=== PATIENT | male | born 1955 | race Caucasian/White ===

== ENCOUNTER 2017-11-28 13:57 | Inpatient (IN) | payer OTHER ==
[2017-11-28 18:29] LABS: ADD MAN DIFF? NO
[2017-11-28 18:31] LABS: BASOPHIL # 0.1 10^3/ul (0.0-0.1); BASOPHILS % 0.5 % (0.0-2.0); EOSINOPHILS # 0.3 10^3/ul (0.0-0.5); EOSINOPHILS % 2.2 % (0.0-7.0); HEMATOCRIT 28.3 % (42.0-52.0); HEMOGLOBIN 8.5 g/dl (14.0-18.0); LYMPHOCYTES # 2.7 10^3/ul (0.8-2.9); LYMPHOCYTES % 20.6 % (15.0-51.0); MEAN CORPUSCULAR HEMOGLOBIN 28.4 pg (29.0-33.0); MEAN CORPUSCULAR VOLUME 94.6 fl (82.0-101.0); MEAN PLATELET VOLUME 10.3 fl (7.4-10.4); MONOCYTE # 1.2 10^3/ul (0.3-0.9); MONOCYTES % 9.3 % (0.0-11.0); NEUTROPHIL # 8.6 10^3/ul (1.6-7.5); NEUTROPHILS % 66.8 % (39.0-77.0); PLATELET COUNT 293 10^3/UL (140-415); RED BLOOD COUNT 2.99 10^6/ul (4.70-6.10); RED CELL DISTRIBUTION WIDTH 11.6 % (11.5-14.5)
[2017-11-28 18:34] LABS: INR 0.91; PROTIME 12.3 Sec (11.9-14.9)
[2017-11-28] MEDS: CIPROFLOXACIN 400MG/D5W 200 ML IVPB (18:40)
[2017-11-28 18:51] LABS: ALANINE AMINOTRANSFERASE 31 IU/L (13-69); ALBUMIN 3.9 g/dl (3.3-4.9); ALBUMIN/GLOBULIN RATIO 1.34; ALKALINE PHOSPHATASE 98 IU/L (42-121); ANION GAP 16 (8-16); ASPARTATE AMINO TRANSFERASE 24 IU/L (15-46); BILIRUBIN,INDIRECT 0.1 mg/dl (0-1.1); BILIRUBIN,TOTAL 0.1 mg/dl (0.2-1.3); BLOOD UREA NITROGEN 60 mg/dl (7-20); CALCIUM 8.7 mg/dl (8.4-10.2); CARBON DIOXIDE 23 mmol/L (21-31); CHLORIDE 110 mmol/L (97-110); GLUCOSE 163 mg/dl (70-220); POTASSIUM 4.9 mmol/L (3.5-5.1); SODIUM 144 mmol/L (135-144); TOTAL PROTEIN 6.8 g/dl (6.1-8.1)
[2017-11-28 19:04] LABS: TROPONIN-I < 0.012 ng/ml (0.000-0.120)
[2017-11-28] MEDS: VANCOMYCIN 1 GM (PMX) 250 ML IVPB (19:31)
[2017-11-28] MEDS ORDERED: ONDANSETRON 4 MG INJ IV (20:00)
[2017-11-28] MEDS ORDERED: ACETAMINOPHEN 325 MG TAB PO (20:00)
[2017-11-28] MEDS: hydrALAzine 20 MG INJ IV (20:55)
[2017-11-28] MEDS ORDERED: NACL 0.9% 3 ML SYG IV (21:00)
[2017-11-28] MEDS ORDERED: ALBUTEROL/IPRATROPIUM (NEB) 3 ML AMP HHN (21:00)
[2017-11-28] MEDS ORDERED: morphine 2 MG INJ IV (21:00)
[2017-11-29] MEDS ORDERED: PENDING SANTYL ORDER FOR WOUND CARE XX
[2017-11-29] MEDS: ATORVASTATIN 20 MG TAB PO ×2 (00:10→20:43)
[2017-11-29] MEDS: HEPARIN 5,000 UNIT/0.5 ML VIAL SC ×3 (00:11→20:44)
[2017-11-29] MEDS: VANCOMYCIN 500MG/NS (PMX) 100 ML IVPB (00:27)
[2017-11-29 06:33] LABS: ADD MAN DIFF? NO
[2017-11-29 06:41] LABS: BASOPHILS % 0.3 % (0.0-2.0); EOSINOPHILS # 0.1 10^3/ul (0.0-0.5); EOSINOPHILS % 1.2 % (0.0-7.0); HEMATOCRIT 26.2 % (42.0-52.0); LYMPHOCYTES # 2.2 10^3/ul (0.8-2.9); MEAN CORPUSCULAR HEMOGLOBIN 28.5 pg (29.0-33.0); MEAN CORPUSCULAR HGB CONC 30.5 g/dl (32.0-37.0); MEAN CORPUSCULAR VOLUME 93.2 fl (82.0-101.0); MEAN PLATELET VOLUME 10.4 fl (7.4-10.4); MONOCYTE # 0.8 10^3/ul (0.3-0.9); MONOCYTES % 6.9 % (0.0-11.0); NEUTROPHIL # 8.8 10^3/ul (1.6-7.5); NEUTROPHILS % 73.2 % (39.0-77.0); PLATELET COUNT 276 10^3/UL (140-415); RED BLOOD COUNT 2.81 10^6/ul (4.70-6.10); RED CELL DISTRIBUTION WIDTH 11.7 % (11.5-14.5)
[2017-11-29 07:05] LABS: ALANINE AMINOTRANSFERASE 26 IU/L (13-69); ALBUMIN 3.4 g/dl (3.3-4.9); ALBUMIN/GLOBULIN RATIO 1.36; ALKALINE PHOSPHATASE 87 IU/L (42-121); ANION GAP 16 (8-16); ASPARTATE AMINO TRANSFERASE 24 IU/L (15-46); BILIRUBIN,INDIRECT 0.2 mg/dl (0-1.1); BILIRUBIN,TOTAL 0.2 mg/dl (0.2-1.3); BLOOD UREA NITROGEN 55 mg/dl (7-20); CALCIUM 8.7 mg/dl (8.4-10.2); CARBON DIOXIDE 21 mmol/L (21-31); CHLORIDE 113 mmol/L (97-110); CHOLESTEROL 152 mg/dl (100-200); CREATININE 3.47 mg/dl (0.61-1.24); GLUCOSE 95 mg/dl (70-220); HDL CHOLESTEROL 30 mg/dl (30-78); LDL CHOLESTEROL,CALCULATED 90 mg/dl; PHOSPHORUS 3.9 mg/dl (2.5-4.9); SODIUM 145 mmol/L (135-144); TOTAL PROTEIN 5.9 g/dl (6.1-8.1); TRIGLYCERIDES 158 mg/dl (0-149)
[2017-11-29 07:13] LABS: IRON 35 ug/dl (35-150)
[2017-11-29 07:24] LABS: HEMOGLOBIN A1C 5.3 % (0-5.9)
[2017-11-29 07:26] LABS: % IRON SATURATION 12 % SAT (22-52); TOTAL IRON BINDING CAPACITY 293 ug/dl (241-421)
[2017-11-29] MEDS: BENAZEPRIL 10 MG TAB PO (08:35)
[2017-11-29] MEDS: CLOPIDOGREL 75 MG TAB PO (08:35)
[2017-11-29] MEDS: AMLODIPINE 2.5 MG TAB PO (08:36)
[2017-11-29] MEDS ORDERED: VANCOMYCIN IV PER PHARMACY XX (09:00)
[2017-11-29] MEDS: SOD CHLORIDE 0.45% 1,000 ML IV (12:35)
[2017-11-29] MEDS: hydrALAzine 20 MG INJ IV (15:57)
[2017-11-29] MEDS: ACETAMINOPHEN 325 MG TAB PO (18:06)
[2017-11-29] MEDS: INSULIN ASPART [NOVOLOG] 3 ML PEN SC ×2 (18:16→20:43)
[2017-11-29] MEDS: SODIUM HYPOCHLORITE (1/40) 1 APPLIC BTL IRR (20:44)
[2017-11-29] MEDS ORDERED: morphine LIQ (10 MG/5 ML) CUP PO (21:30)
[2017-11-30] MEDS: SOD CHLORIDE 0.45% 1,000 ML IV ×4 (01:50→15:26)
[2017-11-30 06:13] LABS: ADD MAN DIFF? NO
[2017-11-30 06:26] LABS: BASOPHILS % 0.3 % (0.0-2.0); EOSINOPHILS # 0.2 10^3/ul (0.0-0.5); EOSINOPHILS % 2.2 % (0.0-7.0); HEMATOCRIT 27.2 % (42.0-52.0); HEMOGLOBIN 8.3 g/dl (14.0-18.0); LYMPHOCYTES # 2.1 10^3/ul (0.8-2.9); LYMPHOCYTES % 20.6 % (15.0-51.0); MEAN CORPUSCULAR HEMOGLOBIN 28.5 pg (29.0-33.0); MEAN CORPUSCULAR HGB CONC 30.5 g/dl (32.0-37.0); MEAN CORPUSCULAR VOLUME 93.5 fl (82.0-101.0); MEAN PLATELET VOLUME 10.4 fl (7.4-10.4); MONOCYTE # 0.9 10^3/ul (0.3-0.9); MONOCYTES % 8.7 % (0.0-11.0); NEUTROPHILS % 67.8 % (39.0-77.0); PLATELET COUNT 293 10^3/UL (140-415); RED BLOOD COUNT 2.91 10^6/ul (4.70-6.10); RED CELL DISTRIBUTION WIDTH 11.7 % (11.5-14.5)
[2017-11-30 06:26] LABS: WHITE BLOOD COUNT 10.3 10^3/ul (4.8-10.8)
[2017-11-30 06:44] LABS: ANION GAP 13 (8-16); BLOOD UREA NITROGEN 51 mg/dl (7-20); CALCIUM 8.7 mg/dl (8.4-10.2); CARBON DIOXIDE 21 mmol/L (21-31); CHLORIDE 116 mmol/L (97-110); CREATININE 3.46 mg/dl (0.61-1.24); GLUCOSE 97 mg/dl (70-220); POTASSIUM 4.8 mmol/L (3.5-5.1); SODIUM 145 mmol/L (135-144)
[2017-11-30] MEDS: INSULIN ASPART [NOVOLOG] 3 ML PEN SC ×4 (07:53→20:51)
[2017-11-30] MEDS: HEPARIN 5,000 UNIT/0.5 ML VIAL SC (09:13)
[2017-11-30] MEDS: SODIUM HYPOCHLORITE (1/40) 1 APPLIC BTL IRR ×2 (09:14→21:00)
[2017-11-30] MEDS: CLOPIDOGREL 75 MG TAB PO (09:14)
[2017-11-30] MEDS: AMLODIPINE 10 MG TAB PO (09:14)
[2017-11-30] MEDS: ACETAMINOPHEN 325 MG TAB PO ×2 (10:25→20:42)
[2017-11-30] MEDS: ACETYLCYSTEINE 600 MG CAP PO ×2 (14:01→20:43)
[2017-11-30 16:31] LABS: ADD UMIC YES; UR ASCORBIC ACID NEGATIVE (NEGATIVE); UR BILIRUBIN (Dip) NEGATIVE (NEGATIVE); UR BLOOD (Dip) 1+ mg/dL (NEGATIVE); UR CLARITY CLEAR (CLEAR); UR COLOR STRAW (YELLOW); UR GLUCOSE (Dip) 1+ mg/dL (NEGATIVE); UR KETONES (Dip) NEGATIVE (NEGATIVE); UR LEUKOCYTE ESTERASE (Dip) NEGATIVE Leu/ul (NEGATIVE); UR NITRITE (Dip) NEGATIVE (NEGATIVE); UR RBC 1 /HPF (0-5); UR SPECIFIC GRAVITY (Dip) 1.012 (1.003-1.030); UR TOTAL PROTEIN (Dip) 2+ mg/dl (NEGATIVE); UR UROBILINOGEN (Dip) NEGATIVE (NEGATIVE); UR WBC 1 /HPF (0-5)
[2017-11-30 16:50] LABS: CREATININE,URINE RANDOM 85.04 mg/dl (20-370)
[2017-11-30 16:50] LABS: SODIUM,URINE RANDOM 83 mmol/L (30-90)
[2017-11-30] MEDS: ZYVOX 600 MG TAB PO (20:42)
[2017-11-30] MEDS: ATORVASTATIN 20 MG TAB PO (20:44)
[2017-12-01] MEDS: INSULIN ASPART [NOVOLOG] 3 ML PEN SC ×4 (01:00→22:24)
[2017-12-01] MEDS: SOD CHLORIDE 0.45% 1,000 ML IV ×4 (02:46→23:47)
[2017-12-01] MEDS: hydrALAzine 20 MG INJ IV ×3 (04:52→18:15)
[2017-12-01] MEDS: SODIUM HYPOCHLORITE (1/40) 1 APPLIC BTL IRR ×3 (05:01→21:00)
[2017-12-01 06:33] LABS: ADD MAN DIFF? NO
[2017-12-01 06:45] LABS: BASOPHILS % 0.3 % (0.0-2.0); EOSINOPHILS # 0.3 10^3/ul (0.0-0.5); EOSINOPHILS % 2.9 % (0.0-7.0); HEMATOCRIT 27.2 % (42.0-52.0); HEMOGLOBIN 8.4 g/dl (14.0-18.0); LYMPHOCYTES # 2.1 10^3/ul (0.8-2.9); LYMPHOCYTES % 21.2 % (15.0-51.0); MEAN CORPUSCULAR HEMOGLOBIN 28.8 pg (29.0-33.0); MEAN CORPUSCULAR HGB CONC 30.9 g/dl (32.0-37.0); MEAN CORPUSCULAR VOLUME 93.2 fl (82.0-101.0); MEAN PLATELET VOLUME 10.4 fl (7.4-10.4); MONOCYTE # 0.9 10^3/ul (0.3-0.9); MONOCYTES % 8.5 % (0.0-11.0); NEUTROPHIL # 6.7 10^3/ul (1.6-7.5); NEUTROPHILS % 66.6 % (39.0-77.0); PLATELET COUNT 270 10^3/UL (140-415); RED BLOOD COUNT 2.92 10^6/ul (4.70-6.10); RED CELL DISTRIBUTION WIDTH 11.6 % (11.5-14.5)
[2017-12-01 06:57] LABS: PHOSPHORUS 4.6 mg/dl (2.5-4.9)
[2017-12-01 06:57] LABS: MAGNESIUM 1.9 mg/dl (1.7-2.5)
[2017-12-01 07:03] LABS: ANION GAP 17 (8-16); BLOOD UREA NITROGEN 52 mg/dl (7-20); CALCIUM 8.6 mg/dl (8.4-10.2); CARBON DIOXIDE 19 mmol/L (21-31); CHLORIDE 112 mmol/L (97-110); CREATININE 3.45 mg/dl (0.61-1.24); GLUCOSE 108 mg/dl (70-220); POTASSIUM 4.7 mmol/L (3.5-5.1); SODIUM 143 mmol/L (135-144)
[2017-12-01] MEDS: ACETAMINOPHEN 325 MG TAB PO ×2 (07:52→17:32)
[2017-12-01] MEDS: ACETYLCYSTEINE 600 MG CAP PO ×2 (12:57→22:23)
[2017-12-01] MEDS: CLOPIDOGREL 75 MG TAB PO (12:57)
[2017-12-01] MEDS: AMLODIPINE 10 MG TAB PO (12:57)
[2017-12-01] MEDS: ZYVOX 600 MG TAB PO ×2 (12:58→22:23)
[2017-12-01] MEDS: NIFEdipine (XL) 60 MG TAB PO (15:47)
[2017-12-01 16:31] LABS: CREATININE, RANDOM URINE 104 mg/dL (20-370); MICROALBUMIN 83.2 mg/dL; MICROALBUMIN/CREATININE RATIO 800 (<30)
[2017-12-01 17:50] LABS: OCCULT BLOOD STOOL NEGATIVE (NEGATIVE)
[2017-12-01] MEDS: ATORVASTATIN 20 MG TAB PO (22:23)
[2017-12-02] MEDS: ACCU-CHEK XX (02:00)
[2017-12-02] MEDS: SOD CHLORIDE 0.45% 1,000 ML IV ×2 (04:30→10:27)
[2017-12-02 04:56] LABS: ADD MAN DIFF? NO
[2017-12-02 05:00] LABS: BASOPHILS % 0.3 % (0.0-2.0); EOSINOPHILS # 0.2 10^3/ul (0.0-0.5); EOSINOPHILS % 1.8 % (0.0-7.0); HEMATOCRIT 24.9 % (42.0-52.0); HEMOGLOBIN 7.6 g/dl (14.0-18.0); LYMPHOCYTES # 2.1 10^3/ul (0.8-2.9); MEAN CORPUSCULAR HEMOGLOBIN 28.5 pg (29.0-33.0); MEAN CORPUSCULAR HGB CONC 30.5 g/dl (32.0-37.0); MEAN CORPUSCULAR VOLUME 93.3 fl (82.0-101.0); MEAN PLATELET VOLUME 10.2 fl (7.4-10.4); NEUTROPHIL # 7.7 10^3/ul (1.6-7.5); NEUTROPHILS % 69.5 % (39.0-77.0); PLATELET COUNT 248 10^3/UL (140-415); RED BLOOD COUNT 2.67 10^6/ul (4.70-6.10); RED CELL DISTRIBUTION WIDTH 11.9 % (11.5-14.5)
[2017-12-02 05:17] LABS: ANION GAP 17 (8-16); BLOOD UREA NITROGEN 53 mg/dl (7-20); CALCIUM 8.6 mg/dl (8.4-10.2); CARBON DIOXIDE 19 mmol/L (21-31); CHLORIDE 112 mmol/L (97-110); GLUCOSE 127 mg/dl (70-220); PHOSPHORUS 4.8 mg/dl (2.5-4.9); POTASSIUM 4.9 mmol/L (3.5-5.1); SODIUM 143 mmol/L (135-144)
[2017-12-02] MEDS: SODIUM HYPOCHLORITE (1/40) 1 APPLIC BTL IRR ×4 (05:32→20:33)
[2017-12-02] MEDS: INSULIN ASPART [NOVOLOG] 3 ML PEN SC ×4 (08:00→20:30)
[2017-12-02] MEDS: CITRIC ACID/SODIUM CITRATE 15 ML CUP PO ×2 (08:41→20:31)
[2017-12-02] MEDS: ACETYLCYSTEINE 600 MG CAP PO ×2 (08:42→20:29)
[2017-12-02] MEDS: CLOPIDOGREL 75 MG TAB PO (08:42)
[2017-12-02] MEDS: ZYVOX 600 MG TAB PO ×2 (08:42→20:31)
[2017-12-02] MEDS: ACETAMINOPHEN 325 MG TAB PO (08:43)
[2017-12-02] MEDS: NIFEdipine (XL) 60 MG TAB PO (08:43)
[2017-12-02] MEDS: CALCIUM ACETATE 667 MG CAP NGT (11:30)
[2017-12-02] MEDS: CILOSTAZOL 100 MG TAB PO ×2 (12:25→20:29)
[2017-12-02] MEDS: EPOETIN ALFA (NESRD) 3,000 UNITS/ML VIAL SC (12:27)
[2017-12-02] MEDS: PENTOXIFYLLINE (SR) 400 MG TAB PO ×2 (12:38→20:31)
[2017-12-02] MEDS: FERROUS GLUCONATE (EC) 325 MG TAB PO ×2 (12:40→20:31)
[2017-12-02] MEDS: CALCIUM ACETATE 667 MG CAP PO ×2 (12:40→17:01)
[2017-12-02] MEDS: ATORVASTATIN 20 MG TAB PO (20:32)
[2017-12-03] MEDS: ACCU-CHEK XX ×2 (01:20→23:04)
[2017-12-03] MEDS: SOD CHLORIDE 0.45% 1,000 ML IV (04:30)
[2017-12-03 04:57] LABS: ADD MAN DIFF? NO
[2017-12-03 05:01] LABS: BASOPHILS % 0.3 % (0.0-2.0); EOSINOPHILS # 0.2 10^3/ul (0.0-0.5); EOSINOPHILS % 1.9 % (0.0-7.0); HEMATOCRIT 24.5 % (42.0-52.0); HEMOGLOBIN 7.5 g/dl (14.0-18.0); LYMPHOCYTES # 2.2 10^3/ul (0.8-2.9); MEAN CORPUSCULAR HEMOGLOBIN 28.2 pg (29.0-33.0); MEAN CORPUSCULAR HGB CONC 30.6 g/dl (32.0-37.0); MEAN CORPUSCULAR VOLUME 92.1 fl (82.0-101.0); MEAN PLATELET VOLUME 10.3 fl (7.4-10.4); MONOCYTE # 0.9 10^3/ul (0.3-0.9); MONOCYTES % 8.3 % (0.0-11.0); NEUTROPHIL # 7.2 10^3/ul (1.6-7.5); NEUTROPHILS % 68.2 % (39.0-77.0); PLATELET COUNT 259 10^3/UL (140-415); RED BLOOD COUNT 2.66 10^6/ul (4.70-6.10); RED CELL DISTRIBUTION WIDTH 11.9 % (11.5-14.5)
[2017-12-03 05:01] LABS: WHITE BLOOD COUNT 10.6 10^3/ul (4.8-10.8)
[2017-12-03 05:39] LABS: ANION GAP 14 (8-16); BLOOD UREA NITROGEN 45 mg/dl (7-20); CALCIUM 8.8 mg/dl (8.4-10.2); CARBON DIOXIDE 20 mmol/L (21-31); CHLORIDE 115 mmol/L (97-110); CREATININE 3.69 mg/dl (0.61-1.24); GLUCOSE 127 mg/dl (70-220); PHOSPHORUS 4.4 mg/dl (2.5-4.9); POTASSIUM 4.9 mmol/L (3.5-5.1); SODIUM 144 mmol/L (135-144)
[2017-12-03] MEDS: INSULIN ASPART [NOVOLOG] 3 ML PEN SC ×4 (08:00→20:35)
[2017-12-03] MEDS: CALCIUM ACETATE 667 MG CAP PO ×3 (08:19→17:42)
[2017-12-03] MEDS: CLOPIDOGREL 75 MG TAB PO (08:20)
[2017-12-03] MEDS: ACETYLCYSTEINE 600 MG CAP PO ×2 (08:20→21:00)
[2017-12-03] MEDS: SODIUM HYPOCHLORITE (1/40) 1 APPLIC BTL IRR ×2 (08:20→20:48)
[2017-12-03] MEDS: FERROUS GLUCONATE (EC) 325 MG TAB PO ×2 (08:20→20:33)
[2017-12-03] MEDS: PENTOXIFYLLINE (SR) 400 MG TAB PO ×3 (08:20→20:33)
[2017-12-03] MEDS: NIFEdipine (XL) 60 MG TAB PO (08:20)
[2017-12-03] MEDS: ZYVOX 600 MG TAB PO ×2 (08:20→20:34)
[2017-12-03] MEDS: CITRIC ACID/SODIUM CITRATE 15 ML CUP PO ×2 (08:20→20:49)
[2017-12-03] MEDS: CILOSTAZOL 100 MG TAB PO ×2 (08:21→21:00)
[2017-12-03] MEDS: ONDANSETRON 4 MG INJ IV (12:22)
[2017-12-03] MEDS: TERBINAFINE 250 MG TAB PO ×2 (12:22→20:34)
[2017-12-03] MEDS: hydrALAzine 20 MG INJ IV (20:35)
[2017-12-03] MEDS: ATORVASTATIN 20 MG TAB PO (21:00)
[2017-12-03] MEDS: METOPROLOL 25 MG TAB PO (22:35)
[2017-12-04] MEDS: hydrALAzine 20 MG INJ IV ×2 (02:56→12:36)
[2017-12-04] MEDS: SOD CHLORIDE 0.45% 1,000 ML IV (04:04)
[2017-12-04 06:57] LABS: ADD MAN DIFF? NO
[2017-12-04 07:06] LABS: WHITE BLOOD COUNT 11.4 10^3/ul (4.8-10.8)
[2017-12-04 07:06] LABS: BASOPHILS % 0.2 % (0.0-2.0); EOSINOPHILS # 0.1 10^3/ul (0.0-0.5); EOSINOPHILS % 1.1 % (0.0-7.0); HEMATOCRIT 24.6 % (42.0-52.0); HEMOGLOBIN 7.5 g/dl (14.0-18.0); LYMPHOCYTES % 17.1 % (15.0-51.0); MEAN CORPUSCULAR HEMOGLOBIN 28.6 pg (29.0-33.0); MEAN CORPUSCULAR HGB CONC 30.5 g/dl (32.0-37.0); MEAN CORPUSCULAR VOLUME 93.9 fl (82.0-101.0); MEAN PLATELET VOLUME 10.5 fl (7.4-10.4); MONOCYTES % 8.7 % (0.0-11.0); NEUTROPHIL # 8.3 10^3/ul (1.6-7.5); NEUTROPHILS % 72.2 % (39.0-77.0); PLATELET COUNT 257 10^3/UL (140-415); RED BLOOD COUNT 2.62 10^6/ul (4.70-6.10); RED CELL DISTRIBUTION WIDTH 11.9 % (11.5-14.5)
[2017-12-04 07:24] LABS: ANION GAP 15 (8-16); BLOOD UREA NITROGEN 49 mg/dl (7-20); CALCIUM 8.8 mg/dl (8.4-10.2); CARBON DIOXIDE 21 mmol/L (21-31); CHLORIDE 112 mmol/L (97-110); CREATININE 3.58 mg/dl (0.61-1.24); GLUCOSE 127 mg/dl (70-220); PHOSPHORUS 4.2 mg/dl (2.5-4.9); SODIUM 143 mmol/L (135-144)
[2017-12-04] MEDS: INSULIN ASPART [NOVOLOG] 3 ML PEN SC ×4 (08:00→21:00)
[2017-12-04] MEDS: NIFEdipine (XL) 60 MG TAB PO (08:04)
[2017-12-04] MEDS: CALCIUM ACETATE 667 MG CAP PO ×3 (08:04→18:09)
[2017-12-04] MEDS: FERROUS GLUCONATE (EC) 325 MG TAB PO (08:05)
[2017-12-04] MEDS: ZYVOX 600 MG TAB PO ×2 (08:05→21:43)
[2017-12-04] MEDS: TERBINAFINE 250 MG TAB PO ×2 (08:05→21:42)
[2017-12-04] MEDS: CLOPIDOGREL 75 MG TAB PO (08:06)
[2017-12-04] MEDS: SODIUM HYPOCHLORITE (1/40) 1 APPLIC BTL IRR ×2 (09:00→21:44)
[2017-12-04] MEDS: PENTOXIFYLLINE (SR) 400 MG TAB PO ×3 (10:00→21:43)
[2017-12-04] MEDS: CITRIC ACID/SODIUM CITRATE 15 ML CUP PO ×2 (10:00→21:41)
[2017-12-04] MEDS: ACETYLCYSTEINE 600 MG CAP PO ×2 (10:00→21:43)
[2017-12-04] MEDS: CILOSTAZOL 100 MG TAB PO ×2 (10:00→21:42)
[2017-12-04] MEDS: LACTOBACILLUS RHAMNOSUS CAP PO ×2 (13:00→21:42)
[2017-12-04] MEDS: FAMOTIDINE 20 MG TAB PO (15:00)
[2017-12-04] MEDS: METOPROLOL 25 MG TAB PO ×2 (15:39→21:43)
[2017-12-04] MEDS ORDERED: ONDANSETRON 4 MG INJ IV (16:00)
[2017-12-04] MEDS ORDERED: EPOETIN ALFA (NESRD) 3,000 UNITS/ML VIAL SC (17:00)
[2017-12-04] MEDS: SOD FERRIC GLUC COMPLX 125 MG in SOD CHLORIDE 0.9% 100 ML IVPB (18:10)
[2017-12-04] MEDS: EPOETIN 4000 UNITS/1 ML INJ (ESRD) SC (21:41)
[2017-12-04] MEDS: ATORVASTATIN 20 MG TAB PO (21:43)
[2017-12-04] MEDS: ACCU-CHEK XX (21:44)
[2017-12-04] MEDS: ONDANSETRON 4 MG INJ IV (22:10)
[2017-12-05] MEDS: SOD CHLORIDE 0.45% 1,000 ML IV (04:19)
[2017-12-05 05:38] LABS: ADD MAN DIFF? NO
[2017-12-05 05:42] LABS: BASOPHILS % 0.2 % (0.0-2.0); EOSINOPHILS # 0.1 10^3/ul (0.0-0.5); EOSINOPHILS % 1.3 % (0.0-7.0); HEMATOCRIT 24.9 % (42.0-52.0); HEMOGLOBIN 7.6 g/dl (14.0-18.0); LYMPHOCYTES # 2.4 10^3/ul (0.8-2.9); LYMPHOCYTES % 22.4 % (15.0-51.0); MEAN CORPUSCULAR HEMOGLOBIN 28.6 pg (29.0-33.0); MEAN CORPUSCULAR HGB CONC 30.5 g/dl (32.0-37.0); MEAN CORPUSCULAR VOLUME 93.6 fl (82.0-101.0); MONOCYTES % 9.6 % (0.0-11.0); NEUTROPHIL # 7.2 10^3/ul (1.6-7.5); NEUTROPHILS % 66.1 % (39.0-77.0); PLATELET COUNT 258 10^3/UL (140-415); RED BLOOD COUNT 2.66 10^6/ul (4.70-6.10)
[2017-12-05 05:42] LABS: WHITE BLOOD COUNT 10.8 10^3/ul (4.8-10.8)
[2017-12-05 06:05] LABS: ALANINE AMINOTRANSFERASE 72 IU/L (13-69); ALBUMIN 3.3 g/dl (3.3-4.9); ALBUMIN/GLOBULIN RATIO 1.37; ALKALINE PHOSPHATASE 76 IU/L (42-121); ANION GAP 16 (8-16); ASPARTATE AMINO TRANSFERASE 53 IU/L (15-46); BILIRUBIN,INDIRECT 0.2 mg/dl (0-1.1); BILIRUBIN,TOTAL 0.2 mg/dl (0.2-1.3); BLOOD UREA NITROGEN 46 mg/dl (7-20); CALCIUM 8.8 mg/dl (8.4-10.2); CARBON DIOXIDE 23 mmol/L (21-31); CHLORIDE 110 mmol/L (97-110); CREATININE 3.98 mg/dl (0.61-1.24); GLUCOSE 127 mg/dl (70-220); MAGNESIUM 2.2 mg/dl (1.7-2.5); PHOSPHORUS 4.1 mg/dl (2.5-4.9); POTASSIUM 4.8 mmol/L (3.5-5.1); SODIUM 144 mmol/L (135-144); TOTAL PROTEIN 5.7 g/dl (6.1-8.1)
[2017-12-05] MEDS: INSULIN ASPART [NOVOLOG] 3 ML PEN SC ×4 (08:00→21:00)
[2017-12-05] MEDS: METOPROLOL 25 MG TAB PO ×2 (08:11→20:16)
[2017-12-05] MEDS: TERBINAFINE 250 MG TAB PO ×2 (08:12→20:23)
[2017-12-05] MEDS: ZYVOX 600 MG TAB PO ×2 (08:12→20:15)
[2017-12-05] MEDS: CALCIUM ACETATE 667 MG CAP PO ×3 (08:12→17:30)
[2017-12-05] MEDS: CITRIC ACID/SODIUM CITRATE 15 ML CUP PO ×2 (08:12→20:12)
[2017-12-05] MEDS: LACTOBACILLUS RHAMNOSUS CAP PO ×2 (08:13→20:12)
[2017-12-05] MEDS: FAMOTIDINE 20 MG TAB PO (08:13)
[2017-12-05] MEDS: ACETYLCYSTEINE 600 MG CAP PO ×2 (08:58→20:14)
[2017-12-05] MEDS: PENTOXIFYLLINE (SR) 400 MG TAB PO ×3 (08:58→20:15)
[2017-12-05] MEDS: CLOPIDOGREL 75 MG TAB PO (08:58)
[2017-12-05] MEDS: CILOSTAZOL 100 MG TAB PO ×2 (08:58→20:14)
[2017-12-05] MEDS: SODIUM HYPOCHLORITE (1/40) 1 APPLIC BTL IRR ×2 (08:58→20:12)
[2017-12-05] MEDS: NIFEdipine (XL) 30 MG TAB PO ×2 (09:00→20:15)
[2017-12-05] MEDS: SOD FERRIC GLUC COMPLX 125 MG in SOD CHLORIDE 0.9% 100 ML IVPB (17:14)
[2017-12-05] MEDS: ENOXAPARIN 30 MG/0.3 ML SYG SC (17:50)
[2017-12-05] MEDS: ATORVASTATIN 20 MG TAB PO (20:14)
[2017-12-06] MEDS: ACCU-CHEK XX (02:00)
[2017-12-06] MEDS: SOD CHLORIDE 0.45% 1,000 ML IV (05:14)
[2017-12-06 06:26] LABS: ADD MAN DIFF? NO
[2017-12-06 06:34] LABS: WHITE BLOOD COUNT 9.7 10^3/ul (4.8-10.8)
[2017-12-06 06:34] LABS: BASOPHILS % 0.4 % (0.0-2.0); EOSINOPHILS # 0.2 10^3/ul (0.0-0.5); EOSINOPHILS % 1.8 % (0.0-7.0); HEMATOCRIT 23.8 % (42.0-52.0); HEMOGLOBIN 7.4 g/dl (14.0-18.0); LYMPHOCYTES # 2.8 10^3/ul (0.8-2.9); LYMPHOCYTES % 28.8 % (15.0-51.0); MEAN CORPUSCULAR HEMOGLOBIN 29.1 pg (29.0-33.0); MEAN CORPUSCULAR HGB CONC 31.1 g/dl (32.0-37.0); MEAN CORPUSCULAR VOLUME 93.7 fl (82.0-101.0); MEAN PLATELET VOLUME 9.9 fl (7.4-10.4); NEUTROPHIL # 5.7 10^3/ul (1.6-7.5); NEUTROPHILS % 58.7 % (39.0-77.0); PLATELET COUNT 248 10^3/UL (140-415); RED BLOOD COUNT 2.54 10^6/ul (4.70-6.10); RED CELL DISTRIBUTION WIDTH 11.9 % (11.5-14.5)
[2017-12-06 07:03] LABS: ANION GAP 17 (8-16); BLOOD UREA NITROGEN 51 mg/dl (7-20); CALCIUM 8.4 mg/dl (8.4-10.2); CARBON DIOXIDE 22 mmol/L (21-31); CHLORIDE 107 mmol/L (97-110); CREATININE 3.89 mg/dl (0.61-1.24); GLUCOSE 107 mg/dl (70-220); MAGNESIUM 2.2 mg/dl (1.7-2.5); PHOSPHORUS 4.5 mg/dl (2.5-4.9); POTASSIUM 4.5 mmol/L (3.5-5.1); SODIUM 141 mmol/L (135-144)
[2017-12-06] MEDS: INSULIN ASPART [NOVOLOG] 3 ML PEN SC ×4 (08:00→21:00)
[2017-12-06] MEDS: METOPROLOL 25 MG TAB PO ×2 (08:22→20:32)
[2017-12-06] MEDS: CALCIUM ACETATE 667 MG CAP PO ×3 (08:22→17:30)
[2017-12-06] MEDS: ACETYLCYSTEINE 600 MG CAP PO ×2 (08:23→20:31)
[2017-12-06] MEDS: LACTOBACILLUS RHAMNOSUS CAP PO ×2 (08:23→20:31)
[2017-12-06] MEDS: FAMOTIDINE 20 MG TAB PO (08:23)
[2017-12-06] MEDS: NIFEdipine (XL) 30 MG TAB PO ×2 (08:23→20:33)
[2017-12-06] MEDS: CLOPIDOGREL 75 MG TAB PO (08:23)
[2017-12-06] MEDS: TERBINAFINE 250 MG TAB PO ×2 (08:23→20:39)
[2017-12-06] MEDS: PENTOXIFYLLINE (SR) 400 MG TAB PO ×3 (08:23→20:30)
[2017-12-06] MEDS: CILOSTAZOL 100 MG TAB PO ×2 (08:23→20:31)
[2017-12-06] MEDS: ZYVOX 600 MG TAB PO ×2 (08:23→20:33)
[2017-12-06] MEDS: CITRIC ACID/SODIUM CITRATE 15 ML CUP PO ×3 (08:23→20:30)
[2017-12-06] MEDS: ENOXAPARIN 30 MG/0.3 ML SYG SC (08:25)
[2017-12-06] MEDS: SODIUM HYPOCHLORITE (1/40) 1 APPLIC BTL IRR ×2 (08:26→20:35)
[2017-12-06] MEDS: ONDANSETRON 4 MG INJ IV (11:40)
[2017-12-06] MEDS: SOD FERRIC GLUC COMPLX 125 MG in SOD CHLORIDE 0.9% 100 ML IVPB (17:30)
[2017-12-06] MEDS: EPOETIN 4000 UNITS/1 ML INJ (ESRD) SC (17:31)
[2017-12-06] MEDS: ATORVASTATIN 20 MG TAB PO (20:34)
[2017-12-07] MEDS ORDERED: DEXTROSE 50% 50 ML SYRINGE IV ×2 (01:00)
[2017-12-07] MEDS: INSULIN ASPART [NOVOLOG] 3 ML PEN SC ×6 (01:00→21:00)
[2017-12-07] MEDS ORDERED: GLUCOSE GEL 15 GRAM TUBE BUCCAL (01:00)
[2017-12-07] MEDS ORDERED: GLUCOSE GEL 15 GRAM TUBE PO ×2 (01:00)
[2017-12-07] MEDS ORDERED: GLUCAGON 1 MG INJ IM (01:00)
[2017-12-07] MEDS: ACCU-CHEK XX (02:00)
[2017-12-07] MEDS: ONDANSETRON 4 MG INJ IV (02:34)
[2017-12-07] MEDS: DEXTROSE 5%-0.45% NACL 1,000 ML IV (04:47)
[2017-12-07 05:06] LABS: OCCULT BLOOD STOOL NEGATIVE (NEGATIVE)
[2017-12-07 05:42] LABS: ADD MAN DIFF? NO
[2017-12-07 05:46] LABS: BASOPHILS % 0.4 % (0.0-2.0); EOSINOPHILS # 0.1 10^3/ul (0.0-0.5); EOSINOPHILS % 1.3 % (0.0-7.0); HEMATOCRIT 25.7 % (42.0-52.0); HEMOGLOBIN 7.9 g/dl (14.0-18.0); LYMPHOCYTES # 1.5 10^3/ul (0.8-2.9); LYMPHOCYTES % 16.2 % (15.0-51.0); MEAN CORPUSCULAR HEMOGLOBIN 28.4 pg (29.0-33.0); MEAN CORPUSCULAR HGB CONC 30.7 g/dl (32.0-37.0); MEAN CORPUSCULAR VOLUME 92.4 fl (82.0-101.0); MEAN PLATELET VOLUME 9.9 fl (7.4-10.4); MONOCYTE # 0.8 10^3/ul (0.3-0.9); MONOCYTES % 8.3 % (0.0-11.0); NEUTROPHIL # 6.8 10^3/ul (1.6-7.5); NEUTROPHILS % 73.3 % (39.0-77.0); PLATELET COUNT 257 10^3/UL (140-415); RED BLOOD COUNT 2.78 10^6/ul (4.70-6.10); RED CELL DISTRIBUTION WIDTH 11.9 % (11.5-14.5)
[2017-12-07 05:46] LABS: WHITE BLOOD COUNT 9.3 10^3/ul (4.8-10.8)
[2017-12-07 06:09] LABS: INR 0.98; PARTIAL THROMBOPLASTIN TIME 31.6 Sec (25.0-35.0); PROTIME 13.1 Sec (11.9-14.9)
[2017-12-07 06:13] LABS: ANION GAP 18 (8-16); BLOOD UREA NITROGEN 47 mg/dl (7-20); CALCIUM 8.8 mg/dl (8.4-10.2); CARBON DIOXIDE 21 mmol/L (21-31); CHLORIDE 109 mmol/L (97-110); CREATININE 4.01 mg/dl (0.61-1.24); GLUCOSE 126 mg/dl (70-220); MAGNESIUM 2.2 mg/dl (1.7-2.5); PHOSPHORUS 4.1 mg/dl (2.5-4.9); POTASSIUM 4.5 mmol/L (3.5-5.1); SODIUM 143 mmol/L (135-144)
[2017-12-07] MEDS: CALCIUM ACETATE 667 MG CAP PO ×3 (07:35→17:47)
[2017-12-07] MEDS: CILOSTAZOL 100 MG TAB PO (09:00)
[2017-12-07] MEDS: CITRIC ACID/SODIUM CITRATE 15 ML CUP PO ×2 (09:00→21:25)
[2017-12-07] MEDS: FAMOTIDINE 20 MG TAB PO (09:00)
[2017-12-07] MEDS: LACTOBACILLUS RHAMNOSUS CAP PO ×2 (09:00→21:26)
[2017-12-07] MEDS: TERBINAFINE 250 MG TAB PO ×2 (09:00→21:25)
[2017-12-07] MEDS: PENTOXIFYLLINE (SR) 400 MG TAB PO ×3 (09:00→21:26)
[2017-12-07] MEDS: ACETYLCYSTEINE 600 MG CAP PO (09:00)
[2017-12-07] MEDS: CLOPIDOGREL 75 MG TAB PO (09:00)
[2017-12-07] MEDS: ZYVOX 600 MG TAB PO ×2 (09:00→21:26)
[2017-12-07] MEDS: NIFEdipine (XL) 30 MG TAB PO ×2 (09:33→21:26)
[2017-12-07] MEDS: SODIUM HYPOCHLORITE (1/40) 1 APPLIC BTL IRR ×2 (09:33→21:25)
[2017-12-07] MEDS: METOPROLOL 25 MG TAB PO ×2 (09:34→21:26)
[2017-12-07] MEDS ORDERED: LIDOCAINE 1% (MDV) 10 ML INJ (12:46)
[2017-12-07] MEDS ORDERED: HEPARIN 1000 UNITS/NS (A-LINE) 1,000 ML (12:47)
[2017-12-07] MEDS ORDERED: FENTAnyl 50 MCG/ML VIAL (12:47)
[2017-12-07] MEDS ORDERED: MIDAZOLAM 1 MG/ML 2 ML INJ (12:48)
[2017-12-07] MEDS ORDERED: IODIXANOL LOCM 100 ML BTL (13:26)
[2017-12-07] MEDS: SOD FERRIC GLUC COMPLX 125 MG in SOD CHLORIDE 0.9% 100 ML IVPB (17:47)
[2017-12-07] MEDS: ATORVASTATIN 20 MG TAB PO (21:26)
[2017-12-08] MEDS: INSULIN ASPART [NOVOLOG] 3 ML PEN SC ×6 (00:10→20:14)
[2017-12-08] MEDS: CILOSTAZOL 100 MG TAB PO (00:41)
[2017-12-08] MEDS: ACCU-CHEK XX ×2 (01:14→23:15)
[2017-12-08] MEDS: DEXTROSE 5%-0.45% NACL 1,000 ML IV (04:30)
[2017-12-08 07:19] LABS: ANION GAP 15 (8-16); BLOOD UREA NITROGEN 52 mg/dl (7-20); CALCIUM 8.5 mg/dl (8.4-10.2); CARBON DIOXIDE 20 mmol/L (21-31); CHLORIDE 112 mmol/L (97-110); GLUCOSE 112 mg/dl (70-220); MAGNESIUM 2.3 mg/dl (1.7-2.5); PHOSPHORUS 4.8 mg/dl (2.5-4.9); POTASSIUM 4.6 mmol/L (3.5-5.1); SODIUM 142 mmol/L (135-144)
[2017-12-08] MEDS: METOPROLOL 25 MG TAB PO ×3 (07:37→20:22)
[2017-12-08] MEDS: CALCIUM ACETATE 667 MG CAP PO ×3 (07:37→17:35)
[2017-12-08] MEDS ORDERED: NIFEdipine (XL) 60 MG TAB PO (09:00)
[2017-12-08] MEDS: ZYVOX 600 MG TAB PO ×3 (09:00→20:22)
[2017-12-08] MEDS: TERBINAFINE 250 MG TAB PO ×3 (09:00→20:21)
[2017-12-08] MEDS: CITRIC ACID/SODIUM CITRATE 15 ML CUP PO ×3 (09:00→20:21)
[2017-12-08] MEDS: SODIUM HYPOCHLORITE (1/40) 1 APPLIC BTL IRR ×2 (13:30→20:16)
[2017-12-08] MEDS: hydrALAzine 20 MG INJ IV ×2 (14:57→20:25)
[2017-12-08] MEDS: CLONIDINE 0.2 MG/24 HR PATCH TRANSDERM (16:27)
[2017-12-08] MEDS: SOD FERRIC GLUC COMPLX 125 MG in SOD CHLORIDE 0.9% 100 ML IVPB (17:22)
[2017-12-08] MEDS: EPOETIN 4000 UNITS/1 ML INJ (ESRD) SC (17:24)
[2017-12-08] MEDS: ENOXAPARIN 30 MG/0.3 ML SYG SC (17:35)
[2017-12-08] MEDS: ATORVASTATIN 20 MG TAB PO ×2 (20:14→20:21)
[2017-12-08] MEDS: ONDANSETRON 4 MG INJ IV (21:41)
[2017-12-09] MEDS: hydrALAzine 20 MG INJ IV ×4 (00:59→19:49)
[2017-12-09] MEDS: DEXTROSE 5%-0.45% NACL 1,000 ML IV (04:34)
[2017-12-09 05:52] LABS: ANION GAP 11 (8-16); BLOOD UREA NITROGEN 49 mg/dl (7-20); CALCIUM 8.3 mg/dl (8.4-10.2); CARBON DIOXIDE 20 mmol/L (21-31); CHLORIDE 120 mmol/L (97-110); CREATININE 3.78 mg/dl (0.61-1.24); GLUCOSE 101 mg/dl (70-220); MAGNESIUM 2.3 mg/dl (1.7-2.5); PHOSPHORUS 4.4 mg/dl (2.5-4.9); POTASSIUM 4.3 mmol/L (3.5-5.1); SODIUM 147 mmol/L (135-144)
[2017-12-09] MEDS: INSULIN ASPART [NOVOLOG] 3 ML PEN SC ×4 (07:30→19:58)
[2017-12-09] MEDS: CALCIUM ACETATE 667 MG CAP PO ×4 (07:35→17:15)
[2017-12-09] MEDS: ASPIRIN (EC) 325 MG TAB PO (08:17)
[2017-12-09] MEDS: FERROUS GLUCONATE (EC) 325 MG TAB PO ×3 (08:17→19:52)
[2017-12-09] MEDS: CITRIC ACID/SODIUM CITRATE 15 ML CUP PO ×3 (08:17→19:52)
[2017-12-09] MEDS: ZYVOX 600 MG TAB PO ×3 (08:19→19:53)
[2017-12-09] MEDS: METOPROLOL 25 MG TAB PO ×3 (08:19→19:53)
[2017-12-09] MEDS: ENOXAPARIN 30 MG/0.3 ML SYG SC (08:20)
[2017-12-09] MEDS: TERBINAFINE 250 MG TAB PO ×2 (08:25→19:52)
[2017-12-09] MEDS: SODIUM HYPOCHLORITE (1/40) 1 APPLIC BTL IRR ×3 (09:00→19:51)
[2017-12-09] MEDS: ONDANSETRON 4 MG INJ IV ×2 (13:43→19:50)
[2017-12-09] MEDS: PANTOPRAZOLE (EC) 40 MG TAB PO (17:23)
[2017-12-09] MEDS: ATORVASTATIN 20 MG TAB PO (19:53)
[2017-12-09] MEDS: ACCU-CHEK XX (23:05)
[2017-12-10] MEDS: DEXTROSE 5%-0.45% NACL 1,000 ML IV (04:30)
[2017-12-10 05:11] LABS: ADD MAN DIFF? NO
[2017-12-10 05:23] LABS: WHITE BLOOD COUNT 10.2 10^3/ul (4.8-10.8)
[2017-12-10 05:23] LABS: BASOPHIL # 0.1 10^3/ul (0.0-0.1); BASOPHILS % 0.5 % (0.0-2.0); EOSINOPHILS # 0.3 10^3/ul (0.0-0.5); EOSINOPHILS % 2.5 % (0.0-7.0); HEMATOCRIT 23.1 % (42.0-52.0); HEMOGLOBIN 7.1 g/dl (14.0-18.0); LYMPHOCYTES # 2.1 10^3/ul (0.8-2.9); LYMPHOCYTES % 20.2 % (15.0-51.0); MEAN CORPUSCULAR HEMOGLOBIN 28.9 pg (29.0-33.0); MEAN CORPUSCULAR HGB CONC 30.7 g/dl (32.0-37.0); MEAN CORPUSCULAR VOLUME 93.9 fl (82.0-101.0); MEAN PLATELET VOLUME 9.6 fl (7.4-10.4); MONOCYTE # 1.3 10^3/ul (0.3-0.9); MONOCYTES % 13.1 % (0.0-11.0); NEUTROPHIL # 6.4 10^3/ul (1.6-7.5); NEUTROPHILS % 62.7 % (39.0-77.0); NUCLEATED RED BLOOD CELLS% 0.3 /100WBC (0.0-0.0); PLATELET COUNT 215 10^3/UL (140-415); RED BLOOD COUNT 2.46 10^6/ul (4.70-6.10); RED CELL DISTRIBUTION WIDTH 12.2 % (11.5-14.5)
[2017-12-10 05:38] LABS: LIPASE 134 U/L (23-300)
[2017-12-10 05:43] LABS: ALANINE AMINOTRANSFERASE 49 IU/L (13-69); ALBUMIN 3.3 g/dl (3.3-4.9); ALBUMIN/GLOBULIN RATIO 1.22; ALKALINE PHOSPHATASE 86 IU/L (42-121); ANION GAP 12 (8-16); ASPARTATE AMINO TRANSFERASE 20 IU/L (15-46); BILIRUBIN,INDIRECT 0.2 mg/dl (0-1.1); BILIRUBIN,TOTAL 0.2 mg/dl (0.2-1.3); BLOOD UREA NITROGEN 47 mg/dl (7-20); CALCIUM 8.5 mg/dl (8.4-10.2); CARBON DIOXIDE 22 mmol/L (21-31); CHLORIDE 118 mmol/L (97-110); CREATININE 3.73 mg/dl (0.61-1.24); GLUCOSE 110 mg/dl (70-220); POTASSIUM 4.3 mmol/L (3.5-5.1); SODIUM 148 mmol/L (135-144)
[2017-12-10] MEDS: PANTOPRAZOLE (EC) 40 MG TAB PO (06:00)
[2017-12-10] MEDS: INSULIN ASPART [NOVOLOG] 3 ML PEN SC ×2 (07:30→13:14)
[2017-12-10] MEDS: CALCIUM ACETATE 667 MG CAP PO ×2 (07:35→11:30)
[2017-12-10] MEDS: METOPROLOL 25 MG TAB PO (08:22)
[2017-12-10] MEDS: ENOXAPARIN 30 MG/0.3 ML SYG SC (08:24)
[2017-12-10] MEDS: CITRIC ACID/SODIUM CITRATE 15 ML CUP PO (09:00)
[2017-12-10] MEDS: NIFEdipine (XL) 60 MG TAB PO (11:10)
[2017-12-10] MEDS: TERBINAFINE 250 MG TAB PO (11:10)
[2017-12-10] MEDS: ASPIRIN (EC) 325 MG TAB PO (11:10)
[2017-12-10] MEDS: ZYVOX 600 MG TAB PO (13:21)
[2017-12-10] MEDS: FERROUS GLUCONATE (EC) 325 MG TAB PO (13:21)
[2017-12-10] MEDS: SODIUM HYPOCHLORITE (1/40) 1 APPLIC BTL IRR (14:00)
[2017-12-13] MEDS ORDERED: LACTOBACILLUS RHAMNOSUS CAP PO (13:00)
== END 2017-12-10 15:52 | DRG 300 ==
LOC: E/R 13:57 → PP2 19:48
PROC: B41DYZZ Fluoroscopy of Aorta and Bilateral Lower Extremity Arteries using Other Contrast (ICD-10-PCS; principal; 2017-12-07 13:06)
DX: E11.52 Type 2 diabetes mellitus with diabetic peripheral angiopathy with gangrene (principal); L03.116 Cellulitis of left lower limb; E87.0 Hyperosmolality and hypernatremia; L97.328 Non-pressure chronic ulcer of left ankle with other specified severity; I12.0 Hypertensive chronic kidney disease with stage 5 chronic kidney disease or end stage renal disease; N18.5 Chronic kidney disease, stage 5; E87.2 Acidosis; I70.92 Chronic total occlusion of artery of the extremities; I70.262 Atherosclerosis of native arteries of extremities with gangrene, left leg; N17.9 Acute kidney failure, unspecified; E11.22 Type 2 diabetes mellitus with diabetic chronic kidney disease; I16.0 Hypertensive urgency; E78.5 Hyperlipidemia, unspecified; E13.622 Other specified diabetes mellitus with other skin ulcer; B35.1 Tinea unguium; D63.1 Anemia in chronic kidney disease; R11.2 Nausea with vomiting, unspecified; Z86.73 Personal history of transient ischemic attack (TIA), and cerebral infarction without residual deficits
CPT/HCPCS: 36246; 36415; 71045; 73610; 74018; 74019; 75710; 76775; 76937; 80048; 80053; 80061; 81001; 81003; 82043; 82270; 82728; 82962; 83036; 83540; 83690; 83735; 84100; 84155; 84300; 84443; 84484; 85025; 85610; 85730; 87040; 87070; 87075; 93005; 93922; 93970; 96374; 96375; 97161; 99285-25

== ENCOUNTER 2019-01-01 14:30 | Inpatient (IN) | payer MEDICARE, OTHER ==
[2019-01-01 15:30] LABS: ADD MAN DIFF? NO
[2019-01-01 15:33] LABS: BASOPHILS % 0.3 % (0.0-2.0); EOSINOPHILS # 0.3 10^3/ul (0.0-0.5); EOSINOPHILS % 2.7 % (0.0-7.0); HEMATOCRIT 25.5 % (42.0-52.0); HEMOGLOBIN 7.8 g/dl (14.0-18.0); LYMPHOCYTES # 1.6 10^3/ul (0.8-2.9); LYMPHOCYTES % 16.3 % (15.0-51.0); MEAN CORPUSCULAR HEMOGLOBIN 27.6 pg (29.0-33.0); MEAN CORPUSCULAR HGB CONC 30.6 g/dl (32.0-37.0); MEAN CORPUSCULAR VOLUME 90.1 fl (82.0-101.0); MEAN PLATELET VOLUME 10.6 fl (7.4-10.4); MONOCYTE # 0.8 10^3/ul (0.3-0.9); MONOCYTES % 8.1 % (0.0-11.0); NEUTROPHIL # 7.1 10^3/ul (1.6-7.5); PLATELET COUNT 208 10^3/UL (140-415); RED BLOOD COUNT 2.83 10^6/ul (4.70-6.10); RED CELL DISTRIBUTION WIDTH 13.2 % (11.5-14.5)
[2019-01-01 15:33] LABS: WHITE BLOOD COUNT 9.9 10^3/ul (4.8-10.8)
[2019-01-01 15:52] LABS: ANION GAP 15 (5-13); BLOOD UREA NITROGEN 109 mg/dl (7-20); CALCIUM 8.4 mg/dl (8.4-10.2); CARBON DIOXIDE 13 mmol/L (21-31); CHLORIDE 114 mmol/L (97-110); CREATININE 7.43 mg/dl (0.61-1.24); Estimated GFR 7 mL/min (>60); GLUCOSE 253 mg/dl (70-220); POTASSIUM 4.7 mmol/L (3.5-5.1); SODIUM 142 mmol/L (135-144)
[2019-01-01] MEDS ORDERED: HYDROCODONE/APAP (5/325) TAB PO (17:00)
[2019-01-01] MEDS ORDERED: ACETAMINOPHEN 325 MG TAB PO ×2 (17:00)
[2019-01-01] MEDS ORDERED: NACL 0.9% 3 ML SYG IV (17:00)
[2019-01-01] MEDS ORDERED: ONDANSETRON 4 MG INJ IV ×2 (17:00)
[2019-01-01] MEDS ORDERED: GLUCOSE GEL 15 GRAM TUBE BUCCAL (17:30)
[2019-01-01] MEDS ORDERED: GLUCOSE GEL 15 GRAM TUBE PO ×2 (17:30)
[2019-01-01] MEDS ORDERED: GLUCAGON 1 MG INJ IM (17:30)
[2019-01-01] MEDS ORDERED: DEXTROSE 50% 50 ML SYRINGE IV ×2 (17:30)
[2019-01-01] MEDS: INSULIN ASPART [NOVOLOG] 3 ML PEN SC ×2 (18:00→21:00)
[2019-01-01] MEDS: ATORVASTATIN 20 MG TAB PO (21:48)
[2019-01-02] MEDS: ACCU-CHEK XX (02:00)
[2019-01-02 05:53] LABS: ADD MAN DIFF? NO
[2019-01-02 05:58] LABS: BASOPHILS % 0.4 % (0.0-2.0); EOSINOPHILS # 0.3 10^3/ul (0.0-0.5); EOSINOPHILS % 2.7 % (0.0-7.0); HEMATOCRIT 25.6 % (42.0-52.0); HEMOGLOBIN 7.8 g/dl (14.0-18.0); LYMPHOCYTES % 20.9 % (15.0-51.0); MEAN CORPUSCULAR HEMOGLOBIN 27.4 pg (29.0-33.0); MEAN CORPUSCULAR HGB CONC 30.5 g/dl (32.0-37.0); MEAN CORPUSCULAR VOLUME 89.8 fl (82.0-101.0); MEAN PLATELET VOLUME 10.7 fl (7.4-10.4); MONOCYTE # 0.9 10^3/ul (0.3-0.9); NEUTROPHIL # 6.2 10^3/ul (1.6-7.5); NEUTROPHILS % 65.7 % (39.0-77.0); PLATELET COUNT 205 10^3/UL (140-415); RED BLOOD COUNT 2.85 10^6/ul (4.70-6.10)
[2019-01-02 05:58] LABS: WHITE BLOOD COUNT 9.4 10^3/ul (4.8-10.8)
[2019-01-02 06:20] LABS: ALANINE AMINOTRANSFERASE 19 IU/L (13-69); ALBUMIN/GLOBULIN RATIO 1.42; ALKALINE PHOSPHATASE 96 IU/L (42-121); ANION GAP 13 (5-13); ASPARTATE AMINO TRANSFERASE 19 IU/L (15-46); BILIRUBIN,INDIRECT 0.2 mg/dl (0-1.1); BILIRUBIN,TOTAL 0.2 mg/dl (0.2-1.3); BLOOD UREA NITROGEN 111 mg/dl (7-20); CALCIUM 8.2 mg/dl (8.4-10.2); CARBON DIOXIDE 15 mmol/L (21-31); CHLORIDE 120 mmol/L (97-110); CHOL/HDL RATIO 6.5 RATIO; CHOLESTEROL 184 mg/dl (100-200); CREATININE 7.52 mg/dl (0.61-1.24); Estimated GFR 7 mL/min (>60); GLUCOSE 100 mg/dl (70-220); HDL CHOLESTEROL 28 mg/dl (30-78); LDL CHOLESTEROL,CALCULATED 110 mg/dl; MAGNESIUM 1.9 mg/dl (1.7-2.5); POTASSIUM 4.6 mmol/L (3.5-5.1); SODIUM 148 mmol/L (135-144); TOTAL PROTEIN 6.8 g/dl (6.1-8.1); TRIGLYCERIDES 229 mg/dl (0-149)
[2019-01-02 06:49] LABS: HEMOGLOBIN A1C 5.3 % (0-5.9)
[2019-01-02] MEDS: INSULIN ASPART [NOVOLOG] 3 ML PEN SC ×4 (08:51→21:00)
[2019-01-02] MEDS: AMLODIPINE 10 MG TAB PO (08:54)
[2019-01-02] MEDS: FERROUS SULFATE (EC) 325 MG TAB PO (08:54)
[2019-01-02] MEDS: METOPROLOL (XL) 100 MG TAB PO (08:55)
[2019-01-02] MEDS: MULTIVIT/CA CARB/B CMPLX/FA TAB PO (15:19)
[2019-01-02 16:17] LABS: HEPATITIS B SURFACE ANTIGEN NEGATIVE (NEGATIVE)
[2019-01-02 16:34] LABS: HEPATITIS B SURFACE ANTIBODY NEGATIVE (NEGATIVE)
[2019-01-02 16:35] LABS: HEPATITIS C VIRAL ANTIBODY NEGATIVE (NEGATIVE)
[2019-01-02] MEDS: DESMOPRESSIN IVPB (17:15)
[2019-01-02] MEDS: SOD CHLORIDE 0.9% IVPB (17:15)
[2019-01-02] MEDS: EPOETIN ALFA-EPBX (ESRD) 4,000 UNIT/ML VIAL SC (17:22)
[2019-01-02] MEDS: ATORVASTATIN 20 MG TAB PO (21:03)
[2019-01-02] MEDS: MANNITOL 25% 50 ML IV ×2 (21:54→21:55)
[2019-01-02] MEDS: HEPARIN 1000 UNITS/ML 10 ML INJ CATHETER (22:46)
[2019-01-03] MEDS: ACCU-CHEK XX (02:00)
[2019-01-03] MEDS: hydrALAzine 20 MG INJ IV ×2 (02:59→08:47)
[2019-01-03 06:02] LABS: ADD MAN DIFF? NO
[2019-01-03 06:11] LABS: BASOPHILS % 0.2 % (0.0-2.0); EOSINOPHILS # 0.2 10^3/ul (0.0-0.5); EOSINOPHILS % 1.7 % (0.0-7.0); HEMATOCRIT 22.9 % (42.0-52.0); HEMOGLOBIN 7.2 g/dl (14.0-18.0); LYMPHOCYTES # 1.9 10^3/ul (0.8-2.9); LYMPHOCYTES % 19.6 % (15.0-51.0); MEAN CORPUSCULAR HEMOGLOBIN 27.5 pg (29.0-33.0); MEAN CORPUSCULAR HGB CONC 31.4 g/dl (32.0-37.0); MEAN CORPUSCULAR VOLUME 87.4 fl (82.0-101.0); NEUTROPHIL # 6.7 10^3/ul (1.6-7.5); PLATELET COUNT 191 10^3/UL (140-415); RED BLOOD COUNT 2.62 10^6/ul (4.70-6.10)
[2019-01-03 06:11] LABS: WHITE BLOOD COUNT 9.8 10^3/ul (4.8-10.8)
[2019-01-03 06:56] LABS: ANION GAP 12 (5-13); BLOOD UREA NITROGEN 67 mg/dl (7-20); CALCIUM 8.1 mg/dl (8.4-10.2); CARBON DIOXIDE 22 mmol/L (21-31); CHLORIDE 110 mmol/L (97-110); CREATININE 4.99 mg/dl (0.61-1.24); Estimated GFR 12 mL/min (>60); GLUCOSE 148 mg/dl (70-220); MAGNESIUM 1.7 mg/dl (1.7-2.5); POTASSIUM 3.8 mmol/L (3.5-5.1); SODIUM 144 mmol/L (135-144)
[2019-01-03] MEDS: INSULIN ASPART [NOVOLOG] 3 ML PEN SC ×4 (07:35→20:16)
[2019-01-03] MEDS: METOPROLOL (XL) 100 MG TAB PO (08:46)
[2019-01-03] MEDS: AMLODIPINE 10 MG TAB PO (08:46)
[2019-01-03] MEDS: MULTIVIT/CA CARB/B CMPLX/FA TAB PO (08:46)
[2019-01-03] MEDS: FERROUS SULFATE (EC) 325 MG TAB PO (08:46)
[2019-01-03] MEDS: MANNITOL 25% 50 ML IV (14:22)
[2019-01-03] MEDS: HEPARIN 1000 UNITS/ML 10 ML INJ CATHETER (14:25)
[2019-01-03] MEDS: ATORVASTATIN 20 MG TAB PO (20:14)
[2019-01-04] MEDS: ACCU-CHEK XX (01:52)
[2019-01-04 05:36] LABS: ADD MAN DIFF? NO
[2019-01-04 05:40] LABS: BASOPHILS % 0.4 % (0.0-2.0); EOSINOPHILS # 0.2 10^3/ul (0.0-0.5); EOSINOPHILS % 1.7 % (0.0-7.0); HEMATOCRIT 26.5 % (42.0-52.0); LYMPHOCYTES # 2.8 10^3/ul (0.8-2.9); LYMPHOCYTES % 26.4 % (15.0-51.0); MEAN CORPUSCULAR HGB CONC 30.2 g/dl (32.0-37.0); MEAN CORPUSCULAR VOLUME 89.5 fl (82.0-101.0); MEAN PLATELET VOLUME 10.6 fl (7.4-10.4); MONOCYTE # 1.3 10^3/ul (0.3-0.9); MONOCYTES % 12.5 % (0.0-11.0); NEUTROPHIL # 6.2 10^3/ul (1.6-7.5); NEUTROPHILS % 58.6 % (39.0-77.0); PLATELET COUNT 210 10^3/UL (140-415); RED BLOOD COUNT 2.96 10^6/ul (4.70-6.10); RED CELL DISTRIBUTION WIDTH 13.2 % (11.5-14.5)
[2019-01-04 05:40] LABS: WHITE BLOOD COUNT 10.6 10^3/ul (4.8-10.8)
[2019-01-04 06:07] LABS: ANION GAP 11 (5-13); BLOOD UREA NITROGEN 45 mg/dl (7-20); CALCIUM 8.2 mg/dl (8.4-10.2); CARBON DIOXIDE 28 mmol/L (21-31); CHLORIDE 104 mmol/L (97-110); Estimated GFR 15 mL/min (>60); GLUCOSE 106 mg/dl (70-220); MAGNESIUM 1.7 mg/dl (1.7-2.5); PHOSPHORUS 5.2 mg/dl (2.5-4.9); POTASSIUM 3.7 mmol/L (3.5-5.1); SODIUM 143 mmol/L (135-144)
[2019-01-04] MEDS: INSULIN ASPART [NOVOLOG] 3 ML PEN SC ×4 (07:35→20:12)
[2019-01-04] MEDS: MULTIVIT/CA CARB/B CMPLX/FA TAB PO (07:57)
[2019-01-04] MEDS: FERROUS SULFATE (EC) 325 MG TAB PO (07:57)
[2019-01-04] MEDS: AMLODIPINE 10 MG TAB PO (07:57)
[2019-01-04] MEDS: METOPROLOL (XL) 100 MG TAB PO (07:58)
[2019-01-04] MEDS: CALCIUM ACETATE 667 MG CAP PO ×2 (12:27→17:11)
[2019-01-04] MEDS: EPOETIN ALFA-EPBX (ESRD) 4,000 UNIT/ML VIAL SC (17:12)
[2019-01-04] MEDS: ATORVASTATIN 20 MG TAB PO (20:06)
[2019-01-05] MEDS: ACCU-CHEK XX (02:00)
[2019-01-05] MEDS: hydrALAzine 20 MG INJ IV (02:38)
[2019-01-05 05:28] LABS: ADD MAN DIFF? NO
[2019-01-05 05:32] LABS: BASOPHILS % 0.4 % (0.0-2.0); EOSINOPHILS # 0.2 10^3/ul (0.0-0.5); HEMATOCRIT 24.3 % (42.0-52.0); HEMOGLOBIN 7.5 g/dl (14.0-18.0); LYMPHOCYTES # 2.9 10^3/ul (0.8-2.9); LYMPHOCYTES % 26.1 % (15.0-51.0); MEAN CORPUSCULAR HEMOGLOBIN 27.5 pg (29.0-33.0); MEAN CORPUSCULAR HGB CONC 30.9 g/dl (32.0-37.0); MONOCYTE # 1.2 10^3/ul (0.3-0.9); MONOCYTES % 10.6 % (0.0-11.0); NEUTROPHIL # 6.8 10^3/ul (1.6-7.5); NEUTROPHILS % 60.2 % (39.0-77.0); PLATELET COUNT 211 10^3/UL (140-415); RED BLOOD COUNT 2.73 10^6/ul (4.70-6.10); RED CELL DISTRIBUTION WIDTH 12.7 % (11.5-14.5)
[2019-01-05 05:32] LABS: WHITE BLOOD COUNT 11.2 10^3/ul (4.8-10.8)
[2019-01-05 06:34] LABS: ANION GAP 13 (5-13); BLOOD UREA NITROGEN 63 mg/dl (7-20); CALCIUM 7.8 mg/dl (8.4-10.2); CARBON DIOXIDE 23 mmol/L (21-31); CHLORIDE 104 mmol/L (97-110); CREATININE 5.49 mg/dl (0.61-1.24); Estimated GFR 11 mL/min (>60); GLUCOSE 100 mg/dl (70-220); MAGNESIUM 1.7 mg/dl (1.7-2.5); PHOSPHORUS 5.6 mg/dl (2.5-4.9); POTASSIUM 3.6 mmol/L (3.5-5.1); SODIUM 140 mmol/L (135-144)
[2019-01-05] MEDS: INSULIN ASPART [NOVOLOG] 3 ML PEN SC ×4 (07:35→20:05)
[2019-01-05] MEDS: FERROUS SULFATE (EC) 325 MG TAB PO (08:42)
[2019-01-05] MEDS: MULTIVIT/CA CARB/B CMPLX/FA TAB PO (08:42)
[2019-01-05] MEDS: AMLODIPINE 10 MG TAB PO (08:43)
[2019-01-05] MEDS: CALCIUM ACETATE 667 MG CAP PO ×3 (08:43→17:17)
[2019-01-05] MEDS: METOPROLOL (XL) 100 MG TAB PO (08:43)
[2019-01-05] MEDS: LOSARTAN 25 MG TAB PO (08:44)
[2019-01-05] MEDS: CALCIUM CARBONATE 1.25 GM TAB PO (20:04)
[2019-01-05] MEDS: ATORVASTATIN 20 MG TAB PO (20:04)
[2019-01-06] MEDS: hydrALAzine 20 MG INJ IV (01:36)
[2019-01-06] MEDS: ACCU-CHEK XX (02:00)
[2019-01-06 06:11] LABS: URIC ACID 6.8 mg/dl (3.1-7.9)
[2019-01-06] MEDS: INSULIN ASPART [NOVOLOG] 3 ML PEN SC ×4 (07:35→20:13)
[2019-01-06] MEDS: CALCIUM ACETATE 667 MG CAP PO ×3 (07:35→17:11)
[2019-01-06] MEDS: HEPARIN 1000 UNITS/ML 10 ML INJ CATHETER (09:37)
[2019-01-06] MEDS: MULTIVIT/CA CARB/B CMPLX/FA TAB PO (10:27)
[2019-01-06] MEDS: CALCIUM CARBONATE 1.25 GM TAB PO ×2 (10:28→20:12)
[2019-01-06] MEDS: AMLODIPINE 10 MG TAB PO (10:28)
[2019-01-06] MEDS: FERROUS SULFATE (EC) 325 MG TAB PO (10:28)
[2019-01-06] MEDS: METOPROLOL (XL) 100 MG TAB PO (10:28)
[2019-01-06] MEDS: LOSARTAN 25 MG TAB PO (10:29)
[2019-01-06] MEDS: ATORVASTATIN 20 MG TAB PO (20:12)
[2019-01-07] MEDS: ACCU-CHEK XX (02:00)
[2019-01-07 05:58] LABS: ADD MAN DIFF? NO
[2019-01-07 06:11] LABS: BASOPHIL # 0.1 10^3/ul (0.0-0.1); BASOPHILS % 0.4 % (0.0-2.0); EOSINOPHILS # 0.2 10^3/ul (0.0-0.5); HEMATOCRIT 24.3 % (42.0-52.0); HEMOGLOBIN 7.5 g/dl (14.0-18.0); LYMPHOCYTES # 2.8 10^3/ul (0.8-2.9); LYMPHOCYTES % 23.6 % (15.0-51.0); MEAN CORPUSCULAR HEMOGLOBIN 27.9 pg (29.0-33.0); MEAN CORPUSCULAR HGB CONC 30.9 g/dl (32.0-37.0); MEAN CORPUSCULAR VOLUME 90.3 fl (82.0-101.0); MEAN PLATELET VOLUME 11.1 fl (7.4-10.4); MONOCYTE # 1.3 10^3/ul (0.3-0.9); MONOCYTES % 10.9 % (0.0-11.0); NEUTROPHIL # 7.4 10^3/ul (1.6-7.5); NEUTROPHILS % 62.6 % (39.0-77.0); NUCLEATED RED BLOOD CELLS% 0.2 /100WBC (0.0-0.0); PLATELET COUNT 211 10^3/UL (140-415); RED BLOOD COUNT 2.69 10^6/ul (4.70-6.10); RED CELL DISTRIBUTION WIDTH 12.8 % (11.5-14.5)
[2019-01-07 06:11] LABS: WHITE BLOOD COUNT 11.9 10^3/ul (4.8-10.8)
[2019-01-07] MEDS ORDERED: LIDOCAINE 1% (MPF) 30 ML INJ ×2 (06:43→09:14)
[2019-01-07 07:01] LABS: ANION GAP 11 (5-13); BLOOD UREA NITROGEN 55 mg/dl (7-20); CALCIUM 8.3 mg/dl (8.4-10.2); CARBON DIOXIDE 27 mmol/L (21-31); CHLORIDE 102 mmol/L (97-110); CREATININE 5.06 mg/dl (0.61-1.24); Estimated GFR 12 mL/min (>60); GLUCOSE 110 mg/dl (70-220); MAGNESIUM 1.9 mg/dl (1.7-2.5); PHOSPHORUS 4.5 mg/dl (2.5-4.9); POTASSIUM 4.1 mmol/L (3.5-5.1); SODIUM 140 mmol/L (135-144)
[2019-01-07] MEDS: CALCIUM ACETATE 667 MG CAP PO ×3 (07:35→17:18)
[2019-01-07] MEDS: INSULIN ASPART [NOVOLOG] 3 ML PEN SC ×4 (07:35→20:56)
[2019-01-07] MEDS ORDERED: ETOMIDATE 20 MG INJ (07:42)
[2019-01-07] MEDS ORDERED: FENTAnyl 50 MCG/ML VIAL ×2 (07:42→08:11)
[2019-01-07] MEDS ORDERED: MIDAZOLAM 1 MG/ML 2 ML INJ (07:42)
[2019-01-07] MEDS ORDERED: ROPIVACAINE 0.5 % 30 ML VIAL (07:45)
[2019-01-07] MEDS: HEPARIN 1000 UNITS/ML 10 ML INJ (08:20)
[2019-01-07] MEDS: GELATIN SIZE 100 SPONGE (08:21)
[2019-01-07] MEDS: THROMBIN 20,000 UNIT VIAL (08:21)
[2019-01-07] MEDS ORDERED: CEFAZOLIN 1 GM INJ (08:44)
[2019-01-07] MEDS ORDERED: hydrALAzine 20 MG INJ (08:46)
[2019-01-07] MEDS ORDERED: LIDOCAINE 2% (SDV) 5 ML INJ (08:55)
[2019-01-07] MEDS ORDERED: PROPOFOL 20 ML (08:55)
[2019-01-07] MEDS ORDERED: METOCLOPRAMIDE 10 MG INJ IV (09:00)
[2019-01-07] MEDS ORDERED: ONDANSETRON 4 MG INJ IV (09:00)
[2019-01-07] MEDS ORDERED: LABETALOL HCL 20MG INJ IV (09:00)
[2019-01-07] MEDS ORDERED: DIPHENHYDRAMINE 50 MG INJ IV (09:00)
[2019-01-07] MEDS ORDERED: hydrALAzine 20 MG INJ IV (09:00)
[2019-01-07] MEDS ORDERED: HYDROmorphONE 1 MG/5 ML IV SYRINGE IV ×2 (09:00)
[2019-01-07] MEDS ORDERED: FENTAnyl 50 MCG/ML VIAL IV (09:00)
[2019-01-07] MEDS ORDERED: GELATIN SIZE 100 SPONGE (09:14)
[2019-01-07] MEDS: MULTIVIT/CA CARB/B CMPLX/FA TAB PO (10:58)
[2019-01-07] MEDS: AMLODIPINE 10 MG TAB PO (10:59)
[2019-01-07] MEDS: LOSARTAN 25 MG TAB PO (10:59)
[2019-01-07] MEDS: FERROUS SULFATE (EC) 325 MG TAB PO (11:00)
[2019-01-07] MEDS: CALCIUM CARBONATE 1.25 GM TAB PO ×2 (11:00→20:52)
[2019-01-07] MEDS: METOPROLOL (XL) 100 MG TAB PO (11:00)
[2019-01-07] MEDS ORDERED: CEPASTAT LOZENGE MT (12:30)
[2019-01-07] MEDS: EPOETIN ALFA-EPBX (ESRD) 4,000 UNIT/ML VIAL SC (16:11)
[2019-01-07] MEDS: ATORVASTATIN 20 MG TAB PO (20:52)
[2019-01-08] MEDS: ACCU-CHEK XX (01:13)
[2019-01-08 05:01] LABS: ADD MAN DIFF? NO
[2019-01-08 05:05] LABS: WHITE BLOOD COUNT 13.1 10^3/ul (4.8-10.8)
[2019-01-08 05:05] LABS: BASOPHIL # 0.1 10^3/ul (0.0-0.1); BASOPHILS % 0.4 % (0.0-2.0); EOSINOPHILS # 0.2 10^3/ul (0.0-0.5); EOSINOPHILS % 1.6 % (0.0-7.0); HEMATOCRIT 25.6 % (42.0-52.0); HEMOGLOBIN 7.5 g/dl (14.0-18.0); LYMPHOCYTES # 2.7 10^3/ul (0.8-2.9); LYMPHOCYTES % 20.6 % (15.0-51.0); MEAN CORPUSCULAR HEMOGLOBIN 27.2 pg (29.0-33.0); MEAN CORPUSCULAR HGB CONC 29.3 g/dl (32.0-37.0); MEAN CORPUSCULAR VOLUME 92.8 fl (82.0-101.0); MEAN PLATELET VOLUME 10.6 fl (7.4-10.4); MONOCYTE # 1.3 10^3/ul (0.3-0.9); MONOCYTES % 10.2 % (0.0-11.0); NEUTROPHIL # 8.7 10^3/ul (1.6-7.5); NEUTROPHILS % 66.7 % (39.0-77.0); PLATELET COUNT 215 10^3/UL (140-415); RED BLOOD COUNT 2.76 10^6/ul (4.70-6.10); RED CELL DISTRIBUTION WIDTH 13.1 % (11.5-14.5)
[2019-01-08 05:38] LABS: ALBUMIN 3.4 g/dl (3.3-4.9); ANION GAP 10 (5-13); BLOOD UREA NITROGEN 70 mg/dl (7-20); CALCIUM 8.7 mg/dl (8.4-10.2); CARBON DIOXIDE 26 mmol/L (21-31); CHLORIDE 104 mmol/L (97-110); CREATININE 6.21 mg/dl (0.61-1.24); GLUCOSE 106 mg/dl (70-220); MAGNESIUM 1.9 mg/dl (1.7-2.5); PHOSPHORUS 4.9 mg/dl (2.5-4.9); POTASSIUM 4.1 mmol/L (3.5-5.1); SODIUM 140 mmol/L (135-144)
[2019-01-08] MEDS: INSULIN ASPART [NOVOLOG] 3 ML PEN SC ×4 (07:35→20:24)
[2019-01-08] MEDS: MULTIVIT/CA CARB/B CMPLX/FA TAB PO (08:04)
[2019-01-08] MEDS: AMLODIPINE 10 MG TAB PO (08:05)
[2019-01-08] MEDS: CALCIUM ACETATE 667 MG CAP PO ×3 (08:05→17:03)
[2019-01-08] MEDS: CALCIUM CARBONATE 1.25 GM TAB PO ×2 (08:06→20:15)
[2019-01-08] MEDS: FERROUS SULFATE (EC) 325 MG TAB PO (08:06)
[2019-01-08] MEDS: METOPROLOL (XL) 100 MG TAB PO (08:07)
[2019-01-08] MEDS: LOSARTAN 25 MG TAB PO (08:07)
[2019-01-08] MEDS: HEPARIN 1000 UNITS/ML 10 ML INJ CATHETER (19:03)
[2019-01-08] MEDS: ATORVASTATIN 20 MG TAB PO (20:08)
== END 2019-01-08 21:31 | disposition home or self-care (01) | DRG 673 ==
LOC: E/R 14:30 → MS3 01-03 19:00
PROC: 0JH63XZ Insertion of Tunneled Vascular Access Device into Chest Subcutaneous Tissue and Fascia, Percutaneous Approach (ICD-10-PCS; principal; 2019-01-02 15:46)
PROC: 03180ZD Bypass Left Brachial Artery to Upper Arm Vein, Open Approach (ICD-10-PCS; 2019-01-02 15:46)
PROC: 05HM33Z Insertion of Infusion Device into Right Internal Jugular Vein, Percutaneous Approach (ICD-10-PCS; 2019-01-02 15:46)
PROC: B543ZZA Ultrasonography of Right Jugular Veins, Guidance (ICD-10-PCS; 2019-01-02 15:46)
PROC: B513ZZA Fluoroscopy of Right Jugular Veins, Guidance (ICD-10-PCS; 2019-01-02 15:46)
PROC: 5A1D70Z Performance of Urinary Filtration, Intermittent, Less than 6 Hours Per Day (ICD-10-PCS; 2019-01-02 15:46)
PROC: 5A1D70Z Performance of Urinary Filtration, Intermittent, Less than 6 Hours Per Day (ICD-10-PCS; 2019-01-02 15:46)
PROC: 5A1D70Z Performance of Urinary Filtration, Intermittent, Less than 6 Hours Per Day (ICD-10-PCS; 2019-01-02 15:46)
PROC: 5A1D70Z Performance of Urinary Filtration, Intermittent, Less than 6 Hours Per Day (ICD-10-PCS; 2019-01-02 15:46)
DX: I12.0 Hypertensive chronic kidney disease with stage 5 chronic kidney disease or end stage renal disease (principal); N18.6 End stage renal disease; E87.2 Acidosis; N17.9 Acute kidney failure, unspecified; E11.8 Type 2 diabetes mellitus with unspecified complications; E11.21 Type 2 diabetes mellitus with diabetic nephropathy; E11.22 Type 2 diabetes mellitus with diabetic chronic kidney disease; Z99.2 Dependence on renal dialysis; E78.5 Hyperlipidemia, unspecified; I73.9 Peripheral vascular disease, unspecified; Z79.4 Long term (current) use of insulin
CPT/HCPCS: 36415; 71045; 76937; 80048; 80053; 80061; 80069; 82306; 82962; 83036; 83735; 84100; 84443; 84560; 85025; 86706; 86803; 87340; 90935; 93005; 93880; 93970; 97161; 99285-25